=== PATIENT | male | born 1995 | race Caucasian/White ===

== ENCOUNTER 2019-11-03 06:00 | Emergency (ER) | payer MEDICAID | END 2019-11-03 06:10 | disposition left against medical advice (07) | LOC: ER 06:01 | DX: T50.905A Adverse effect of unspecified drugs, medicaments and biological substances, initial encounter (principal); Z53.21 Procedure and treatment not carried out due to patient leaving prior to being seen by health care provider; Y92.89 Other specified places as the place of occurrence of the external cause ==

== ENCOUNTER 2021-05-08 21:53 | Inpatient (IN) | payer MEDICAID, OTHER ==
[~2021-05-08] VITALS: Ht 172.7 cm; Wt 59.1 kg
[2021-05-08 22:35] LABS: BASOPHILS % (AUTO) 0.1 % (0-1); EOSINOPHILS # (AUTO) 0.1 X10'3 (0-0.9); EOSINOPHILS % (AUTO) 1.3 % (0-6); HEMOGLOBIN 13.7 g/dl (14.0-17.9); LYMPHOCYTES # (AUTO) 1.2 X10'3 (1.1-4.8); LYMPHOCYTES % (AUTO) 18.9 % (21-51); MEAN CORPUSCULAR HEMOGLOBIN 30.4 PG (27.0-31.0); MEAN CORPUSCULAR HGB CONC 33.4 g/dL (33.0-36.5); MEAN CORPUSCULAR VOLUME 91.1 FL (78-98); MEAN PLATELET VOLUME 9.7 FL (7.4-10.4); MONOCYTES # (AUTO) 0.7 X10'3 (0-0.9); MONOCYTES % (AUTO) 11.8 % (2-12); NEUTROPHILS # (AUTO) 4.2 X10'3 (1.8-7.7); NEUTROPHILS % (AUTO) 67.9 % (42-75); PLATELET COUNT 188 X10'3 (140-440); RED BLOOD COUNT 4.49 X10'6 (4.70-6.10); RED CELL DISTRIBUTION WIDTH 12.5 % (11.5-14.5); WHITE BLOOD COUNT 6.1 X10'3 (4.5-11.0)
[2021-05-08 22:47] LABS: LACTIC SEPSIS 2.7 MMOL/L (0.4-2.0)
[2021-05-08 23:08] LABS: ALANINE AMINOTRANSFERASE 21 U/L (12-78); ALBUMIN 4.3 G/DL (3.4-5.0); ALBUMIN/GLOBULIN RATIO 1.4 (1.1-1.5); ALKALINE PHOSPHATASE 122 IU/L (46-116); ANION GAP 12 (8-16); ASPARTATE AMINO TRANSFERASE 16 U/L (10-37); BILIRUBIN,TOTAL 0.8 MG/DL (0.1-1.0); BLOOD UREA NITROGEN 18 MG/DL (7-18); BUN/CREATININE RATIO 15.8 (5.4-32.0); CALCIUM 9.6 MG/DL (8.5-10.1); CHLORIDE 106 MMOL/L (99-107); CREATININE 1.14 MG/DL (0.60-1.10); GLUCOSE 116 MG/DL (70-104); POTASSIUM 3.4 MMOL/L (3.5-5.1); SODIUM 143 MMOL/L (135-145); TOTAL PROTEIN 7.4 G/DL (6.4-8.2); eGFR 76 ML/MIN
[2021-05-08 23:12] LABS: TROPONIN I < 0.04 NG/ML (0.0-0.05)
[2021-05-08 23:13] LABS: ETHANOL < 0.010 GM/DL (0.0-0.010)
[2021-05-08] MEDS ORDERED: normal saline 1000ML IV soln IV ONE (23:25)
[2021-05-08 23:30] LABS: URINE AMPHETAMINE SCREEN NEGATIVE (Neg); URINE BARBITUATE SCREEN NEGATIVE (Neg); URINE BENZODIAZEPINES SCREEN NEGATIVE (Neg); URINE CANNABINOID SCREEN NEGATIVE (Neg); URINE COCAINE SCREEN NEGATIVE (Neg); URINE METHADONE SCREEN NEGATIVE (Neg); URINE OPIATE SCREEN NEGATIVE (Neg); URINE PHENCYCLIDINE SCREEN NEGATIVE (Neg)
[2021-05-08 23:48] LABS: CLARITY,URINE CLEAR (Clear); COLOR,URINE YELLOW (Yellow); PROTEIN,URINE NEGATIVE (Neg); UA COLLECTION TYPE NON-SPECIFIED
[2021-05-08 23:49] LABS: GLUCOSE, URINE NEGATIVE (Neg); KETONES,URINE NEGATIVE (Neg); LEUKOCYTE ESTERASE ,URINE NEGATIVE (Neg); NITRITES, URINE NEGATIVE (Neg); OCCULT BLOOD,URINE NEGATIVE (Neg); UROBILINOGEN,URINE 0.2 E.U/dL (0.2-1.0)
[2021-05-08 23:58] LABS: CREATINE KINASE 94 U/L (39-308)
[2021-05-09] MEDS ORDERED: magnesium hydroxide 30ml (MOM) UD suspension PO PRN (00:10)
[2021-05-09] MEDS ORDERED: ipratropium/albuterol 3ml nebule NEB PRN (00:10)
[2021-05-09] MEDS ORDERED: potassium Cl 20 mEq SR tablet PO PRN ×2 (00:10)
[2021-05-09] MEDS ORDERED: ondansetron/PF 4mg/2ml inj IV PRN (00:10)
[2021-05-09] MEDS ORDERED: potassium Cl 40MEQ/1/2NS 520ml 520 ML IV PRN ×2 (00:10)
[2021-05-09] MEDS ORDERED: magnesium 2GM in 50ml NS 50 ML IV PRN (00:10)
[2021-05-09] MEDS ORDERED: mag hydrox/Alum hydrox/simeth 30ml oral suspension PO PRN (00:10)
[2021-05-09] MEDS ORDERED: acetaminophen 325mg tablet PO PRN ×2 (00:10)
[2021-05-09] MEDS ORDERED: albuterol 2.5 MG/3 ML nebule NEB PRN (00:10)
[2021-05-09] MEDS ORDERED: HYDROcodone/acetaminophen 5mg/325mg tablet PO PRN (00:10)
[2021-05-09] MEDS ORDERED: HYDROcodone/acetaminophen 10/325mg tab PO PRN (00:10)
[2021-05-09] MEDS ORDERED: magnesium 4gm in 100ml NS 100 ML IV PRN (00:10)
[2021-05-09] MEDS: potassium Cl 20mEq in NS 1,000 ML IV SCH ×3 (00:21→16:15)
[2021-05-09] MEDS ORDERED: PERFLUTREN PROTEIN-A MICROSPHR (Optison) 0.22 MG/ML 3ML VIAL IV PRN (00:50)
--- NOTE | 2021-05-09 07:53 | NUR ---
Report given to COMMUTATOR OPERATOR eLigh. Pt room currently needing to be cleaned, RN to call when room ready for pt.
[2021-05-09] MEDS: docusate sod 100mg capsule PO SCH ×2 (07:58→21:20)
[2021-05-09] MEDS: K and/or MAG REPLACEMENT MC SCH ×2 (07:58→20:00)
[2021-05-09 10:00] VITALS: BP 129/85
--- NOTE | 2021-05-09 10:00 | NUR ---
Patient in room PCU 3010. I have received report from YOSHI Dubon and had the opportunity to ask questions and assume patient care.
[2021-05-09 10:34] LABS: BASOPHILS % (AUTO) 0.1 % (0-1); EOSINOPHILS % (AUTO) 0.4 % (0-6); HEMATOCRIT 40.4 % (42.0-52.0); LYMPHOCYTES # (AUTO) 0.9 X10'3 (1.1-4.8); LYMPHOCYTES % (AUTO) 8.2 % (21-51); MEAN CORPUSCULAR HEMOGLOBIN 30.7 PG (27.0-31.0); MEAN CORPUSCULAR HGB CONC 34.5 g/dL (33.0-36.5); MEAN PLATELET VOLUME 9.1 FL (7.4-10.4); MONOCYTES # (AUTO) 1.4 X10'3 (0-0.9); NEUTROPHILS # (AUTO) 8.5 X10'3 (1.8-7.7); NEUTROPHILS % (AUTO) 78.3 % (42-75); PLATELET COUNT 193 X10'3 (140-440); RED BLOOD COUNT 4.54 X10'6 (4.70-6.10); RED CELL DISTRIBUTION WIDTH 12.5 % (11.5-14.5); WHITE BLOOD COUNT 10.9 X10'3 (4.5-11.0)
[2021-05-09 10:42] LABS: ALANINE AMINOTRANSFERASE 22 U/L (12-78); ALBUMIN 3.8 G/DL (3.4-5.0); ALBUMIN/GLOBULIN RATIO 1.2 (1.1-1.5); ALKALINE PHOSPHATASE 123 IU/L (46-116); ANION GAP 11 (8-16); ASPARTATE AMINO TRANSFERASE 17 U/L (10-37); BLOOD UREA NITROGEN 9 MG/DL (7-18); CALCIUM 9.2 MG/DL (8.5-10.1); CHLORIDE 111 MMOL/L (99-107); CREATININE 0.82 MG/DL (0.60-1.10); GLUCOSE 84 MG/DL (70-104); POTASSIUM 4.2 MMOL/L (3.5-5.1); SODIUM 146 MMOL/L (135-145); eGFR > 90 ML/MIN
[2021-05-09 11:00] VITALS: BP 121/82
[2021-05-09] MEDS ORDERED: NO HOME MEDS (11:48)
--- NOTE | 2021-05-09 12:39 | NUR ---
Unable to DART Patient is completely incapacitated and unable to be darted.
[2021-05-09 15:00] VITALS: BP 120/81
[2021-05-09] MEDS: dextrose 5%-water 1,000 ML IV SCH (17:40)
[2021-05-09 18:00] VITALS: BP 121/84
--- NOTE | 2021-05-09 18:20 | NUR ---
Patient in room PCU 3010. I have received report from Yolis BELLE and had the opportunity to ask questions and assume patient care.
--- NOTE | 2021-05-09 22:18 | NUR ---
Patient drank 100% of fluids on tray Addendum: 05/09/21 at 2218 by Neyda Manuel RN Amended: Links added.
[2021-05-09 23:00] VITALS: BP 120/86
--- NOTE | 2021-05-10 01:54 | NUR ---
Anisa from lab called to report a positive blood culture in aerobic bottle of Gram positive cocci in clusters. Called MD. Advised that patient is starting augmentin in the AM. gave order to start ABX now.
[2021-05-10] MEDS ORDERED: amox tr/potassium clavulanate 875/125mg TAB PO ONE (02:05)
[2021-05-10 02:25] VITALS: BP 123/93
[2021-05-10] MEDS: dextrose 5%-water 1,000 ML IV SCH ×2 (04:26→13:40)
--- NOTE | 2021-05-10 05:05 | NUR ---
Called MD with regard to run of ST in 140's. New orders for EkG and cardizem 5mg IV and repaeat in 30 mins if HR over 110. orders entered into matrix.
[2021-05-10] MEDS ORDERED: diltiazem 5mg/ml 5ml inj. IV ONE ×2 (05:10→08:50)
--- NOTE | 2021-05-10 05:29 | NUR ---
EKG completed. Cardizem given to discharge rn to push.
--- NOTE | 2021-05-10 05:30 | NUR ---
HR now 102, therefore cardizem not administered.
[2021-05-10 06:00] VITALS: BP 121/84
--- NOTE | 2021-05-10 06:15 | NUR ---
Patient in room PCU 3010. I have received report from YOSHI Faye and had the opportunity to ask questions and assume patient care.
--- NOTE | 2021-05-10 06:32 | NUR ---
Problems reprioritized. Patient report given, questions answered & plan of care reviewed with Yolis BELLE.
[2021-05-10 07:11] LABS: BASOPHILS % (AUTO) 0.1 % (0-1); LYMPHOCYTES # (AUTO) 1.3 X10'3 (1.1-4.8); MEAN CORPUSCULAR HGB CONC 33.9 g/dL (33.0-36.5); NEUTROPHILS # (AUTO) 5.3 X10'3 (1.8-7.7); WHITE BLOOD COUNT 7.6 X10'3 (4.5-11.0)
[2021-05-10 07:14] LABS: EOSINOPHILS # (AUTO) 0.2 X10'3 (0-0.9); EOSINOPHILS % (AUTO) 2.2 % (0-6); HEMATOCRIT 42.2 % (42.0-52.0); HEMOGLOBIN 14.3 g/dl (14.0-17.9); LYMPHOCYTES % (AUTO) 17.2 % (21-51); MEAN CORPUSCULAR HEMOGLOBIN 30.8 PG (27.0-31.0); MEAN CORPUSCULAR VOLUME 90.9 FL (78-98); MEAN PLATELET VOLUME 9.2 FL (7.4-10.4); MONOCYTES # (AUTO) 0.8 X10'3 (0-0.9); MONOCYTES % (AUTO) 11.2 % (2-12); NEUTROPHILS % (AUTO) 69.3 % (42-75); PLATELET COUNT 213 X10'3 (140-440); RED BLOOD COUNT 4.64 X10'6 (4.70-6.10); RED CELL DISTRIBUTION WIDTH 12.7 % (11.5-14.5)
[2021-05-10 07:45] LABS: ALANINE AMINOTRANSFERASE 20 U/L (12-78); ALBUMIN/GLOBULIN RATIO 1.2 (1.1-1.5); ALKALINE PHOSPHATASE 136 IU/L (46-116); ANION GAP 11 (8-16); ASPARTATE AMINO TRANSFERASE 16 U/L (10-37); BLOOD UREA NITROGEN 7 MG/DL (7-18); BUN/CREATININE RATIO 8.3 (5.4-32.0); CALCIUM 9.2 MG/DL (8.5-10.1); CHLORIDE 107 MMOL/L (99-107); CREATININE 0.84 MG/DL (0.60-1.10); GLUCOSE 91 MG/DL (70-104); MAGNESIUM 2.2 MG/DL (1.5-2.4); POTASSIUM 4.3 MMOL/L (3.5-5.1); SODIUM 143 MMOL/L (135-145); TOTAL CARBON DIOXIDE 24.6 MMOL/L (24-32); TOTAL PROTEIN 7.3 G/DL (6.4-8.2); eGFR > 90 ML/MIN
[2021-05-10] MEDS: K and/or MAG REPLACEMENT MC SCH ×2 (08:00→19:41)
[2021-05-10] MEDS: amox tr/potassium clavulanate 875/125mg TAB PO SCH ×2 (08:48→17:33)
[2021-05-10] MEDS: docusate sod 100mg capsule PO SCH ×2 (08:48→19:37)
--- NOTE | 2021-05-10 08:54 | NUR ---
Paged Dr. Reyes PAGER ID: [phone] MESSAGE: 3010 White, Anton HR in the 160s with bigeminy, trigeminy, PVCs; one time 5mg Cardizem available. Leigh BELLE [phone]
[2021-05-10 11:00] VITALS: BP 122/83
[2021-05-10 15:00] VITALS: BP 134/88
--- NOTE | 2021-05-10 18:34 | NUR ---
[place] Medication Administration: For this medication-pass time frame, all medication were reviewed, dispensed, administered and documented per hospital policy by YOSHI Fatima.
--- NOTE | 2021-05-10 18:35 | NUR ---
[place] documentation: I have reviewed and agree with all interventions, assessments performed and documented by YOSHI Fatima.
--- NOTE | 2021-05-10 18:40 | NUR ---
Patient in room PCU 3010. I have received report from LEXIE BELLE and had the opportunity to ask questions and assume patient care.
[2021-05-10 19:00] VITALS: BP 125/101
[2021-05-10 22:00] VITALS: BP 115/82
[2021-05-10] MEDS ORDERED: propranolol 10mg tablet PO ONE (23:30)
[2021-05-11] VITALS (7 sets, daily range): BP systolic 101–115; BP diastolic 57–80
[2021-05-11] MEDS: dextrose 5%-water 1,000 ML IV SCH ×3 (00:22→19:40)
--- NOTE | 2021-05-11 02:25 | NUR ---
PAGED DR. LINARES AND WAS INFORMED OF ANOTHER POSITIVE BLOOD CULTURE GRAM +COCCI IN CLUSTERS SEEN IN AEROBIC BOTTLE DRAWN 05/09 235. CALLED BACK AND SAID WILL WRITE NEW ORDERS FOR ANTIBIOTICS.
[2021-05-11] MEDS: CefTRIAXone/D5W-Rocephin 1gm 50 ML IV SCH (04:02)
--- NOTE | 2021-05-11 06:30 | NUR ---
Problems reprioritized. Patient report given, questions answered & plan of care reviewed with GAGE BELLE.
[2021-05-11 07:28] LABS: BASOPHILS % (AUTO) 0.4 % (0-1); EOSINOPHILS # (AUTO) 0.2 X10'3 (0-0.9); HEMATOCRIT 38.7 % (42.0-52.0); HEMOGLOBIN 13.3 g/dl (14.0-17.9); LYMPHOCYTES # (AUTO) 2.1 X10'3 (1.1-4.8); LYMPHOCYTES % (AUTO) 33.7 % (21-51); MEAN CORPUSCULAR HEMOGLOBIN 30.7 PG (27.0-31.0); MEAN CORPUSCULAR HGB CONC 34.3 g/dL (33.0-36.5); MEAN CORPUSCULAR VOLUME 89.4 FL (78-98); MEAN PLATELET VOLUME 9.1 FL (7.4-10.4); MONOCYTES # (AUTO) 0.8 X10'3 (0-0.9); MONOCYTES % (AUTO) 13.3 % (2-12); NEUTROPHILS % (AUTO) 49.6 % (42-75); PLATELET COUNT 235 X10'3 (140-440); RED BLOOD COUNT 4.33 X10'6 (4.70-6.10); RED CELL DISTRIBUTION WIDTH 12.6 % (11.5-14.5); WHITE BLOOD COUNT 6.1 X10'3 (4.5-11.0)
[2021-05-11 07:53] LABS: ALANINE AMINOTRANSFERASE 19 U/L (12-78); ALBUMIN 3.5 G/DL (3.4-5.0); ALBUMIN/GLOBULIN RATIO 1.1 (1.1-1.5); ALKALINE PHOSPHATASE 124 IU/L (46-116); ANION GAP 8 (8-16); ASPARTATE AMINO TRANSFERASE 17 U/L (10-37); BLOOD UREA NITROGEN 8 MG/DL (7-18); BUN/CREATININE RATIO 9.1 (5.4-32.0); CALCIUM 9.2 MG/DL (8.5-10.1); CHLORIDE 104 MMOL/L (99-107); CREATININE 0.88 MG/DL (0.60-1.10); GLUCOSE 100 MG/DL (70-104); MAGNESIUM 2.2 MG/DL (1.5-2.4); POTASSIUM 3.7 MMOL/L (3.5-5.1); SODIUM 137 MMOL/L (135-145); TOTAL CARBON DIOXIDE 25.2 MMOL/L (24-32); TOTAL PROTEIN 6.6 G/DL (6.4-8.2); eGFR > 90 ML/MIN
[2021-05-11] MEDS: K and/or MAG REPLACEMENT MC SCH ×2 (08:00→19:59)
[2021-05-11] MEDS: vancomycin/NS 1 GM ADD-VANTAGE 250 ML IV SCH ×2 (10:16→17:54)
[2021-05-11] MEDS: docusate sod 100mg capsule PO SCH ×2 (10:17→21:16)
[2021-05-11] MEDS: propranolol 10mg tablet PO SCH ×2 (10:19→21:16)
--- NOTE | 2021-05-11 15:07 | NUR ---
PAGER ID: [phone] MESSAGE: LORE Day 3010 PT. SHOULD BE ON SEIZURE MEDS IF HERE FOR SEIZURE? MED REQ. NOT CORRECT. PT. TAKES MANY MEDS PER SACHA BELLE. THEY ARE FAXING EMAR. PLEASE REVIEW MED WHEN COMPLETE. Valeriy [phone]
[2021-05-11] MEDS ORDERED: HALO10TA13 PO (15:47)
[2021-05-11] MEDS ORDERED: CLOZ200T PO (15:47)
[2021-05-11] MEDS ORDERED: LITH300C PO (15:51)
[2021-05-11] MEDS ORDERED: SERT25TA PO (15:51)
[2021-05-11] MEDS ORDERED: MAGN200T5 PO (15:51)
[2021-05-11] MEDS ORDERED: MIRT-92 PO (15:51)
--- NOTE | 2021-05-11 15:54 | NUR ---
CALLED [facility] [phone] FOR HOME MEDS. MEDS FAXED OVER AND MED REQ IMPUTED. FAX PAPERS PLACED IN CHART.
--- NOTE | 2021-05-11 16:21 | NUR ---
PAGER ID: [phone] MESSAGE: Faith Day 8276A MED REQ DONE. PLEASE REVIEW WHEN YOU CAN. FOUND WHAT LOOKS LIKE INFECTED SCAB/ABRASION ON CHEST. WANT TOPICAL ANTIBACTERIAL CREAM? GAGE [phone]
--- NOTE | 2021-05-11 16:56 | NUR ---
PAGER ID: [phone] MESSAGE: Faith Day 3010A PT WILLING TO GET EEG IF IT IS REORDERED AT THIS TIME. DO YOU WANT? GAGE [phone]
--- NOTE | 2021-05-11 18:25 | NUR ---
DARLENE CALLED. DOES NOT WANT TO DO AN EEG AT THIS TIME.
--- NOTE | 2021-05-11 18:40 | NUR ---
GAVE REPORT TO MORENO BELLE
--- NOTE | 2021-05-11 18:48 | NUR ---
Patient in room PCU 3010. I have received report from Amaris BELLE and had the opportunity to ask questions and assume patient care.
--- NOTE | 2021-05-11 20:00 | NUR ---
New PiV 20 gauge to LAC as patient pulled out the PIV to RUE.
[2021-05-11] MEDS: clozapine 100mg tablet PO SCH (21:13)
[2021-05-11] MEDS: sertraline 50mg tablet PO SCH (21:14)
[2021-05-11] MEDS: mirtazapine 15mg tablet PO SCH (21:14)
[2021-05-11] MEDS: lithium carbonate 150mg capsule PO SCH (21:14)
[2021-05-11] MEDS: haloperidol 5mg tablet PO SCH (21:16)
[2021-05-11] MEDS: neomy sulf/bacitrac zn/polymixin b oint 14.2 gm tube TP SCH (21:19)
[2021-05-11] MEDS ORDERED: bisacodyl 10mg suppository rectal RC ONE (22:00)
[2021-05-12] VITALS (7 sets, daily range): BP systolic 100–128; BP diastolic 62–76
[2021-05-12] MEDS: CefTRIAXone/D5W-Rocephin 1gm 50 ML IV SCH (01:22)
[2021-05-12] MEDS: vancomycin/NS 1 GM ADD-VANTAGE 250 ML IV SCH (02:21)
--- NOTE | 2021-05-12 06:50 | NUR ---
Problems reprioritized. Patient report given, questions answered & plan of care reviewed with Leona BELLE.
--- NOTE | 2021-05-12 07:13 | NUR ---
Patient in room PCU 3010. I have received report from Neyda BELLE and had the opportunity to ask questions and assume patient care went in room to check on patient and he was just coming out of the bathroom where he had pooped all over the bathroom smeared on the marion , toilet shower curtain marion, and all over himself guard present in room patient in leg shackles and one wrist shackles. Patient cleaned up PIV wrapped and patient was assisted in the shower, House keeping called and room and bed being cleaned.
[2021-05-12] MEDS: docusate sod 100mg capsule PO SCH ×2 (08:00→18:35)
[2021-05-12] MEDS: K and/or MAG REPLACEMENT MC SCH ×2 (08:00→20:00)
[2021-05-12] MEDS: propranolol 10mg tablet PO SCH ×2 (08:36→20:46)
[2021-05-12] MEDS: haloperidol 5mg tablet PO SCH ×3 (08:36→20:46)
[2021-05-12] MEDS: magnesium oxide 400mg tablet PO SCH (08:36)
[2021-05-12] MEDS: lithium carbonate 150mg capsule PO SCH ×2 (08:37→20:47)
[2021-05-12] MEDS: neomy sulf/bacitrac zn/polymixin b oint 14.2 gm tube TP SCH ×3 (08:37→21:00)
[2021-05-12] MEDS: heparin, porcine 5000 units/ml vial SQ SCH ×2 (08:37→20:47)
[2021-05-12] MEDS: dextrose 5%-water 1,000 ML IV SCH ×4 (08:46→23:50)
[2021-05-12] MEDS ORDERED: VANCOMYCIN LEVEL IV ONE (09:30)
[2021-05-12 10:26] LABS: BASOPHILS % (AUTO) 0.3 % (0-1); EOSINOPHILS # (AUTO) 0.2 X10'3 (0-0.9); EOSINOPHILS % (AUTO) 3.9 % (0-6); LYMPHOCYTES # (AUTO) 1.9 X10'3 (1.1-4.8); LYMPHOCYTES % (AUTO) 33.4 % (21-51); MEAN CORPUSCULAR HEMOGLOBIN 30.4 PG (27.0-31.0); MEAN CORPUSCULAR HGB CONC 33.3 g/dL (33.0-36.5); MEAN CORPUSCULAR VOLUME 91.2 FL (78-98); MEAN PLATELET VOLUME 9.5 FL (7.4-10.4); MONOCYTES # (AUTO) 0.7 X10'3 (0-0.9); MONOCYTES % (AUTO) 12.9 % (2-12); NEUTROPHILS # (AUTO) 2.7 X10'3 (1.8-7.7); NEUTROPHILS % (AUTO) 49.5 % (42-75); PLATELET COUNT 224 X10'3 (140-440); RED BLOOD COUNT 4.28 X10'6 (4.70-6.10); RED CELL DISTRIBUTION WIDTH 12.7 % (11.5-14.5); WHITE BLOOD COUNT 5.5 X10'3 (4.5-11.0)
[2021-05-12 10:41] LABS: ALANINE AMINOTRANSFERASE 20 U/L (12-78); ALBUMIN 3.2 G/DL (3.4-5.0); ALBUMIN/GLOBULIN RATIO 0.9 (1.1-1.5); ALKALINE PHOSPHATASE 115 IU/L (46-116); ANION GAP 7 (8-16); ASPARTATE AMINO TRANSFERASE 17 U/L (10-37); BILIRUBIN,TOTAL 0.6 MG/DL (0.1-1.0); BLOOD UREA NITROGEN 14 MG/DL (7-18); BUN/CREATININE RATIO 14.3 (5.4-32.0); CALCIUM 8.7 MG/DL (8.5-10.1); CHLORIDE 109 MMOL/L (99-107); CREATININE 0.98 MG/DL (0.60-1.10); GLUCOSE 104 MG/DL (70-104); MAGNESIUM 2.4 MG/DL (1.5-2.4); SODIUM 144 MMOL/L (135-145); TOTAL CARBON DIOXIDE 28.1 MMOL/L (24-32); TOTAL PROTEIN 6.7 G/DL (6.4-8.2); eGFR > 90 ML/MIN
[2021-05-12 10:45] LABS: VANCOMYCIN,TROUGH 20.7 UG/ML (6.0-14.0)
--- NOTE | 2021-05-12 10:56 | NUR ---
PAGER ID: [phone] MESSAGE: Hunter [phone] Re: White 3010 Critical [place] Trough 20.7 pharmacy to dose already
--- NOTE | 2021-05-12 12:13 | NUR ---
Betsy Pharmacist aware of patient Vanco Trough 20.7 and is making adjustments.
[2021-05-12] MEDS: VANCOmycin 1250MG/NS 250ml Bag 250 ML IV SCH (16:20)
--- NOTE | 2021-05-12 18:19 | NUR ---
Patient in room PCU 3010. I have received report from YOSHI Delgadillo and had the opportunity to ask questions and assume patient care.
--- NOTE | 2021-05-12 18:37 | NUR ---
Problems reprioritized. Patient report given, questions answered & plan of care reviewed with Maryana Moore RN.
[2021-05-12] MEDS: sertraline 50mg tablet PO SCH (20:46)
[2021-05-12] MEDS: clozapine 100mg tablet PO SCH (20:47)
[2021-05-12] MEDS: mirtazapine 15mg tablet PO SCH (22:13)
[2021-05-13] MEDS: CefTRIAXone/D5W-Rocephin 1gm 50 ML IV SCH (01:10)
[2021-05-13 02:00] VITALS: BP 118/68
[2021-05-13] MEDS: VANCOmycin 1250MG/NS 250ml Bag 250 ML IV SCH (02:00)
[2021-05-13 06:00] VITALS: BP 116/84
--- NOTE | 2021-05-13 06:53 | NUR ---
Problems reprioritized. Patient report given, questions answered & plan of care reviewed with YOSHI Kohler.
[2021-05-13 07:15] LABS: BASOPHILS % (AUTO) 0.3 % (0-1); EOSINOPHILS # (AUTO) 0.1 X10'3 (0-0.9); EOSINOPHILS % (AUTO) 1.8 % (0-6); HEMATOCRIT 40.7 % (42.0-52.0); HEMOGLOBIN 13.6 g/dl (14.0-17.9); LYMPHOCYTES # (AUTO) 1.6 X10'3 (1.1-4.8); LYMPHOCYTES % (AUTO) 23.8 % (21-51); MEAN CORPUSCULAR HEMOGLOBIN 30.3 PG (27.0-31.0); MEAN CORPUSCULAR HGB CONC 33.6 g/dL (33.0-36.5); MEAN CORPUSCULAR VOLUME 90.2 FL (78-98); MEAN PLATELET VOLUME 9.6 FL (7.4-10.4); MONOCYTES # (AUTO) 0.6 X10'3 (0-0.9); MONOCYTES % (AUTO) 8.1 % (2-12); NEUTROPHILS # (AUTO) 4.5 X10'3 (1.8-7.7); PLATELET COUNT 252 X10'3 (140-440); RED BLOOD COUNT 4.51 X10'6 (4.70-6.10); RED CELL DISTRIBUTION WIDTH 12.6 % (11.5-14.5); WHITE BLOOD COUNT 6.8 X10'3 (4.5-11.0)
[2021-05-13 07:52] LABS: ALANINE AMINOTRANSFERASE 21 U/L (12-78); ALBUMIN 3.6 G/DL (3.4-5.0); ALBUMIN/GLOBULIN RATIO 1.1 (1.1-1.5); ALKALINE PHOSPHATASE 144 IU/L (46-116); ANION GAP 10 (8-16); ASPARTATE AMINO TRANSFERASE 15 U/L (10-37); BILIRUBIN,TOTAL 1.1 MG/DL (0.1-1.0); BLOOD UREA NITROGEN 7 MG/DL (7-18); CALCIUM 9.2 MG/DL (8.5-10.1); CHLORIDE 109 MMOL/L (99-107); CREATININE 0.78 MG/DL (0.60-1.10); GLUCOSE 116 MG/DL (70-104); MAGNESIUM 2.5 MG/DL (1.5-2.4); POTASSIUM 3.8 MMOL/L (3.5-5.1); SODIUM 143 MMOL/L (135-145); eGFR > 90 ML/MIN
[2021-05-13] MEDS: K and/or MAG REPLACEMENT MC SCH (08:00)
[2021-05-13] MEDS: docusate sod 100mg capsule PO SCH (08:21)
[2021-05-13] MEDS: propranolol 10mg tablet PO SCH (08:22)
[2021-05-13] MEDS: magnesium oxide 400mg tablet PO SCH (08:22)
[2021-05-13] MEDS: haloperidol 5mg tablet PO SCH (08:22)
[2021-05-13] MEDS: lithium carbonate 150mg capsule PO SCH (08:23)
[2021-05-13] MEDS: heparin, porcine 5000 units/ml vial SQ SCH (08:24)
[2021-05-13] MEDS: neomy sulf/bacitrac zn/polymixin b oint 14.2 gm tube TP SCH (08:24)
[2021-05-13] MEDS ORDERED: PROP10TA10 PO (10:00)
[2021-05-13] MEDS ORDERED: ALBU8.5H17 INH (10:00)
[2021-05-13] MEDS ORDERED: AMOX-580 PO (10:00)
[2021-05-13] MEDS ORDERED: NEOM28.37 TP (10:00)
[2021-05-13 11:00] VITALS: BP 109/65
--- NOTE | 2021-05-13 12:30 | NUR ---
Patient stable for discharge. PIV removed with catheter intact. Telemetry removed. Discharge instructions given to guard to give to medical staff at hospital. Medical staff at [facility] was called to confirm they would be able to fill prescription via their pharmacy. Care Home guards x2 transported patient off unit.
[2021-05-14] MEDS ORDERED: VANCOMYCIN LEVEL IV ONE (01:30)
== END 2021-05-13 12:45 | DRG 871 ==
LOC: ER 21:54 → EEVIPCON 21:54 → ED HOLD 05-09 00:15 → EDBEDREQ 05-09 00:28 → PCU 3S 05-09 10:19
PROVIDERS: ADMIT Family Medicine; ATTEND Family Medicine
DX: A41.9 Sepsis, unspecified organism (principal); G93.41 Metabolic encephalopathy; S02.40DA Maxillary fracture, left side, initial encounter for closed fracture; E87.0 Hyperosmolality and hypernatremia; R00.8 Other abnormalities of heart beat; I49.9 Cardiac arrhythmia, unspecified; Z20.822 Contact with and (suspected) exposure to COVID-19; X58.XXXA Exposure to other specified factors, initial encounter; E87.6 Hypokalemia; F29 Unspecified psychosis not due to a substance or known physiological condition; F17.200 Nicotine dependence, unspecified, uncomplicated; Z78.1 Physical restraint status; Z59.0 Homelessness; Z56.0 Unemployment, unspecified; Y93.89 Activity, other specified; Y92.89 Other specified places as the place of occurrence of the external cause; Y99.8 Other external cause status
CPT/HCPCS: 36415; 70450; 71045; 80053; 80202; 80305; 80320; 81003; 82140; 82550; 82553; 82948; 83605; 83735; 84443; 84484; 85025; 87040; 87077; 87081; 87186; 87635; 93005; 93306; 94760; 97116; 97161; 97530; 99285; C9803; G0378; J0696; J1644; J3370; J3480; J7030; J7070

== ENCOUNTER 2021-05-29 02:27 | Inpatient (IN) | payer MEDICAID ==
[~2021-05-29] VITALS: Ht 172.7 cm; Wt 65.8 kg
[~2021-05-29 02:27] MED LIST: ALBU8.5H17 INH; AMOX-580 PO; CLOZ200T PO; HALO10TA13 PO; LITH300C PO; MAGN200T5 PO; MIRT-92 PO; NEOM28.37 TP; PROP10TA10 PO; SERT25TA PO
[2021-05-29] MEDS ORDERED: propranolol 10mg tablet PO ONE (03:00)
[2021-05-29 03:09] LABS: BASOPHILS % (AUTO) 0.3 % (0-1); EOSINOPHILS # (AUTO) 0.3 X10'3 (0-0.9); EOSINOPHILS % (AUTO) 3.3 % (0-6); HEMATOCRIT 40.5 % (42.0-52.0); LYMPHOCYTES # (AUTO) 2.3 X10'3 (1.1-4.8); LYMPHOCYTES % (AUTO) 30.6 % (21-51); MEAN CORPUSCULAR HEMOGLOBIN 30.3 PG (27.0-31.0); MEAN CORPUSCULAR HGB CONC 34.6 g/dL (33.0-36.5); MEAN CORPUSCULAR VOLUME 87.8 FL (78-98); MEAN PLATELET VOLUME 9.5 FL (7.4-10.4); MONOCYTES # (AUTO) 0.6 X10'3 (0-0.9); MONOCYTES % (AUTO) 8.5 % (2-12); NEUTROPHILS # (AUTO) 4.4 X10'3 (1.8-7.7); NEUTROPHILS % (AUTO) 57.3 % (42-75); PLATELET COUNT 204 X10'3 (140-440); RED BLOOD COUNT 4.62 X10'6 (4.70-6.10); RED CELL DISTRIBUTION WIDTH 12.8 % (11.5-14.5); WHITE BLOOD COUNT 7.6 X10'3 (4.5-11.0)
[2021-05-29 03:24] LABS: ALANINE AMINOTRANSFERASE 31 U/L (12-78); ALBUMIN 4.2 G/DL (3.4-5.0); ALBUMIN/GLOBULIN RATIO 1.3 (1.1-1.5); ALKALINE PHOSPHATASE 139 IU/L (46-116); ANION GAP 10 (8-16); ASPARTATE AMINO TRANSFERASE 18 U/L (10-37); BLOOD UREA NITROGEN 16 MG/DL (7-18); BUN/CREATININE RATIO 13.4 (5.4-32.0); CALCIUM 9.4 MG/DL (8.5-10.1); CHLORIDE 107 MMOL/L (99-107); CREATININE 1.19 MG/DL (0.60-1.10); GLUCOSE 110 MG/DL (70-104); SODIUM 143 MMOL/L (135-145); TOTAL CARBON DIOXIDE 25.7 MMOL/L (24-32); TOTAL PROTEIN 7.5 G/DL (6.4-8.2); eGFR 73 ML/MIN
[2021-05-29 03:26] LABS: URINE AMPHETAMINE SCREEN NEGATIVE (Neg); URINE BARBITUATE SCREEN NEGATIVE (Neg); URINE BENZODIAZEPINES SCREEN NEGATIVE (Neg); URINE CANNABINOID SCREEN NEGATIVE (Neg); URINE COCAINE SCREEN NEGATIVE (Neg); URINE METHADONE SCREEN NEGATIVE (Neg); URINE OPIATE SCREEN NEGATIVE (Neg); URINE PHENCYCLIDINE SCREEN NEGATIVE (Neg)
[2021-05-29 03:30] LABS: ETHANOL < 0.010 GM/DL (0.0-0.010)
[2021-05-29 04:15] VITALS: BP 133/92
[2021-05-29] MEDS ORDERED: acetaminophen 325mg tablet PO PRN ×2 (04:15)
[2021-05-29] MEDS ORDERED: magnesium hydroxide 30ml (MOM) UD suspension PO PRN (04:15)
[2021-05-29] MEDS ORDERED: loperamide 2mg capsule PO PRN (04:15)
[2021-05-29] MEDS ORDERED: mag hydrox/Alum hydrox/simeth 30ml oral suspension PO PRN (04:15)
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
[2021-05-29] MEDS ORDERED: LITH300C PO (05:37)
[2021-05-29 07:46] VITALS: BP 131/80
[2021-05-29] MEDS: lithium carbonate 150mg capsule PO SCH ×2 (07:59→20:14)
[2021-05-29] MEDS: magnesium oxide 400mg tablet PO SCH (07:59)
[2021-05-29] MEDS: haloperidol 5mg tablet PO SCH ×3 (07:59→20:15)
[2021-05-29] MEDS ORDERED: FLU VACC QS2021-22(6MOS UP)/PF 60 MCG/0.5 ML SYRINGE IM ONE (10:00)
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
[2021-05-29] MEDS ORDERED: hydrOXYzine 25 MG tablet PO PRN (18:35)
[2021-05-29] MEDS ORDERED: clozapine 25mg tablet PO PRN (18:35)
[2021-05-29 19:23] VITALS: BP 128/81
[2021-05-29] MEDS: clozapine 100mg tablet PO SCH (20:14)
[2021-05-29] MEDS: mirtazapine 15mg tablet PO SCH (20:15)
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
[2021-05-30 07:53] VITALS: BP 116/73
[2021-05-30] MEDS: haloperidol 5mg tablet PO SCH ×2 (08:23→20:34)
[2021-05-30] MEDS: lithium carbonate 150mg capsule PO SCH ×2 (08:23→20:31)
[2021-05-30] MEDS: magnesium oxide 400mg tablet PO SCH (08:23)
[2021-05-30] MEDS: sertraline 50mg tablet PO SCH (08:24)
[2021-05-30 09:30] LABS: HEMOGLOBIN A1C 5.4 % (4.5-6.2)
[2021-05-30 09:45] LABS: CHOL/HDL RATIO 1.7 (0.00-4.99); CHOLESTEROL 119 MG/DL (0-200); HDL CHOLESTEROL 70 MG/DL (35-60); LDL CHOLESTEROL 45 MG/DL (50-100); TRIGLYCERIDES 67 MG/DL (20-135)
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
[2021-05-30 20:13] VITALS: BP 119/76
[2021-05-30] MEDS: clozapine 100mg tablet PO SCH (20:30)
[2021-05-30] MEDS: mirtazapine 15mg tablet PO SCH (20:31)
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
[2021-05-31 07:52] VITALS: BP 111/77
[2021-05-31] MEDS: sertraline 50mg tablet PO SCH (07:56)
[2021-05-31] MEDS: haloperidol 5mg tablet PO SCH ×2 (07:56→21:00)
[2021-05-31] MEDS: magnesium oxide 400mg tablet PO SCH (07:57)
[2021-05-31] MEDS: lithium carbonate 150mg capsule PO SCH ×2 (07:57→20:00)
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
[2021-05-31 20:48] VITALS: BP 122/81
[2021-05-31] MEDS: clozapine 100mg tablet PO SCH (21:00)
[2021-05-31] MEDS: mirtazapine 15mg tablet PO SCH (21:00)
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
[2021-06-01 08:00] VITALS: BP 111/71
[2021-06-01] MEDS: sertraline 50mg tablet PO SCH (08:07)
[2021-06-01] MEDS: lithium carbonate 150mg capsule PO SCH ×2 (08:07→20:30)
[2021-06-01] MEDS: haloperidol 5mg tablet PO SCH ×2 (08:07→20:31)
[2021-06-01] MEDS: magnesium oxide 400mg tablet PO SCH (08:07)
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
[2021-06-01 19:00] VITALS: BP 122/74
[2021-06-01] MEDS: mirtazapine 15mg tablet PO SCH (20:30)
[2021-06-01] MEDS: clozapine 100mg tablet PO SCH (20:30)
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
[2021-06-02 08:00] VITALS: BP 102/68
[2021-06-02] MEDS: sertraline 50mg tablet PO SCH (08:10)
[2021-06-02] MEDS: magnesium oxide 400mg tablet PO SCH (08:10)
[2021-06-02] MEDS: lithium carbonate 150mg capsule PO SCH ×2 (08:11→20:25)
[2021-06-02] MEDS: haloperidol 5mg tablet PO SCH ×2 (08:11→20:26)
--- NOTE | 2021-06-02 09:35 | NUR ---
Initial: Pt admit for grave disability. Currently on a regular diet and eating well, documented with mostly 100% meeting estimated nutrient needs. LBM 06/02. No documented edema or wounds. No nutrition diagnosis at this time. Will continue to follow. Recommendations: 1) Continue regular diet 2) Bowel care PRN 3) Weekly scaled weights Addendum: 06/02/21 at [address] Amended: Links added.
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
[2021-06-02 19:24] VITALS: BP 105/67
[2021-06-02] MEDS: mirtazapine 15mg tablet PO SCH (20:26)
[2021-06-02] MEDS: clozapine 100mg tablet PO SCH (20:27)
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
[2021-06-03] MEDS: sertraline 50mg tablet PO SCH (07:30)
[2021-06-03] MEDS: magnesium oxide 400mg tablet PO SCH (07:30)
[2021-06-03] MEDS: lithium carbonate 150mg capsule PO SCH ×2 (07:30→20:52)
[2021-06-03] MEDS: haloperidol 5mg tablet PO SCH ×2 (07:30→20:53)
[2021-06-03 08:00] VITALS: BP 116/84
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
[2021-06-03 19:23] VITALS: BP 113/74
[2021-06-03] MEDS: clozapine 100mg tablet PO SCH (20:52)
[2021-06-03] MEDS: mirtazapine 15mg tablet PO SCH (20:53)
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
[2021-06-04] MEDS: sertraline 50mg tablet PO SCH (07:48)
[2021-06-04] MEDS: haloperidol 5mg tablet PO SCH ×2 (07:48→20:43)
[2021-06-04] MEDS: magnesium oxide 400mg tablet PO SCH (07:48)
[2021-06-04] MEDS: lithium carbonate 150mg capsule PO SCH ×2 (07:48→20:43)
[2021-06-04 08:00] VITALS: BP 106/67
--- NOTE | 2021-06-04 14:38 | NUR ---
PLACEMENT Sent placement packet to [place] office. IRA Sousa
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
[2021-06-04 19:22] VITALS: BP 122/84
[2021-06-04] MEDS: clozapine 100mg tablet PO SCH (20:42)
[2021-06-04] MEDS: mirtazapine 15mg tablet PO SCH (20:44)
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
[2021-06-05 08:00] VITALS: BP 119/65
[2021-06-05] MEDS: lithium carbonate 150mg capsule PO SCH ×2 (08:15→20:30)
[2021-06-05] MEDS: sertraline 50mg tablet PO SCH (08:15)
[2021-06-05] MEDS: magnesium oxide 400mg tablet PO SCH (08:16)
[2021-06-05] MEDS: haloperidol 5mg tablet PO SCH ×2 (08:16→20:30)
[2021-06-05 09:48] LABS: BASOPHILS % (AUTO) 0.5 % (0-1); EOSINOPHILS # (AUTO) 0.3 X10'3 (0-0.9); EOSINOPHILS % (AUTO) 5.1 % (0-6); HEMOGLOBIN 12.9 g/dl (14.0-17.9); LYMPHOCYTES # (AUTO) 1.7 X10'3 (1.1-4.8); LYMPHOCYTES % (AUTO) 30.8 % (21-51); MEAN CORPUSCULAR HEMOGLOBIN 29.9 PG (27.0-31.0); MEAN CORPUSCULAR HGB CONC 33.1 g/dL (33.0-36.5); MEAN CORPUSCULAR VOLUME 90.2 FL (78-98); MEAN PLATELET VOLUME 9.3 FL (7.4-10.4); MONOCYTES # (AUTO) 0.6 X10'3 (0-0.9); MONOCYTES % (AUTO) 9.8 % (2-12); NEUTROPHILS % (AUTO) 53.8 % (42-75); PLATELET COUNT 230 X10'3 (140-440); RED BLOOD COUNT 4.33 X10'6 (4.70-6.10); RED CELL DISTRIBUTION WIDTH 13.5 % (11.5-14.5); WHITE BLOOD COUNT 5.6 X10'3 (4.5-11.0)
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
[2021-06-05 19:28] VITALS: BP 121/75
[2021-06-05] MEDS: mirtazapine 15mg tablet PO SCH (20:30)
[2021-06-05] MEDS: clozapine 100mg tablet PO SCH (20:38)
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
[2021-06-06 08:00] VITALS: BP 87/54
[2021-06-06] MEDS: magnesium oxide 400mg tablet PO SCH (08:01)
[2021-06-06] MEDS: sertraline 50mg tablet PO SCH (08:01)
[2021-06-06] MEDS: lithium carbonate 150mg capsule PO SCH ×2 (08:02→20:19)
[2021-06-06] MEDS: haloperidol 5mg tablet PO SCH ×2 (08:02→20:17)
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
[2021-06-06] MEDS: mirtazapine 15mg tablet PO SCH (20:16)
[2021-06-06] MEDS: clozapine 100mg tablet PO SCH (20:17)
[2021-06-06 20:31] VITALS: BP 116/78
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
[2021-06-07] MEDS: magnesium oxide 400mg tablet PO SCH (07:46)
[2021-06-07] MEDS: sertraline 50mg tablet PO SCH (07:46)
[2021-06-07] MEDS: lithium carbonate 150mg capsule PO SCH ×2 (07:47→20:15)
[2021-06-07] MEDS: haloperidol 5mg tablet PO SCH ×2 (07:47→20:14)
[2021-06-07 08:00] VITALS: BP 114/75
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
[2021-06-07 20:00] VITALS: BP 120/80
[2021-06-07] MEDS: mirtazapine 15mg tablet PO SCH (20:14)
[2021-06-07] MEDS: clozapine 100mg tablet PO SCH (20:16)
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
[2021-06-08] MEDS: sertraline 50mg tablet PO SCH (07:46)
[2021-06-08] MEDS: haloperidol 5mg tablet PO SCH ×2 (07:46→20:27)
[2021-06-08] MEDS: magnesium oxide 400mg tablet PO SCH (07:46)
[2021-06-08] MEDS: lithium carbonate 150mg capsule PO SCH ×2 (07:47→20:27)
[2021-06-08 08:00] VITALS: BP 103/70
--- NOTE | 2021-06-08 14:20 | NUR ---
F/u: Request for double portions received by dietary; double eggs WB and double meats BIDLD added to meals. Addendum: 06/08/21 at [address] Amended: Links added.
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
[2021-06-08 20:00] VITALS: BP 115/80
[2021-06-08] MEDS: clozapine 100mg tablet PO SCH (20:26)
[2021-06-08] MEDS: mirtazapine 15mg tablet PO SCH (20:28)
[2021-06-08] MEDS: clozapine 25mg tablet PO SCH (21:00)
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
[2021-06-09 07:24] VITALS: BP 110/74
[2021-06-09] MEDS: magnesium oxide 400mg tablet PO SCH (08:01)
[2021-06-09] MEDS: haloperidol 5mg tablet PO SCH ×2 (08:01→20:37)
[2021-06-09] MEDS: lithium carbonate 150mg capsule PO SCH ×2 (08:01→20:36)
[2021-06-09] MEDS: sertraline 50mg tablet PO SCH (08:01)
--- NOTE | 2021-06-09 11:35 | NUR ---
F/u 06/09: Pt PO 100% regular diet w/ double eggs WB and double meats BIDLD added to meals per request exceeding needs. LBM 06/07. No nutrition intervention at this time. Will continue to monitor. Recommendations: 1) Continue regular diet; double eggs WB/double meats BIDLD per request 2) Bowel care PRN 3) Weekly scaled weights Addendum: 06/09/21 at [address] Amended: Links added.
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
[2021-06-09 19:34] VITALS: BP 112/68
[2021-06-09] MEDS: clozapine 100mg tablet PO SCH (20:36)
[2021-06-09] MEDS: clozapine 25mg tablet PO SCH (20:36)
[2021-06-09] MEDS: mirtazapine 15mg tablet PO SCH (20:37)
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
[2021-06-10 07:52] VITALS: BP 114/79
[2021-06-10] MEDS: sertraline 50mg tablet PO SCH (07:57)
[2021-06-10] MEDS: magnesium oxide 400mg tablet PO SCH (07:57)
[2021-06-10] MEDS: haloperidol 5mg tablet PO SCH ×2 (07:58→20:45)
[2021-06-10] MEDS: lithium carbonate 150mg capsule PO SCH ×2 (07:58→20:48)
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
[2021-06-10 20:00] VITALS: BP 127/87
[2021-06-10] MEDS: clozapine 25mg tablet PO SCH (20:44)
[2021-06-10] MEDS: clozapine 100mg tablet PO SCH (20:44)
[2021-06-10] MEDS: mirtazapine 15mg tablet PO SCH (20:46)
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
[2021-06-11 08:00] VITALS: BP 112/73
[2021-06-11] MEDS: sertraline 50mg tablet PO SCH (08:27)
[2021-06-11] MEDS: magnesium oxide 400mg tablet PO SCH (08:27)
[2021-06-11] MEDS: lithium carbonate 150mg capsule PO SCH ×2 (08:27→19:56)
[2021-06-11] MEDS: haloperidol 5mg tablet PO SCH ×2 (08:28→19:57)
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
[2021-06-11] MEDS: mirtazapine 15mg tablet PO SCH (19:56)
[2021-06-11] MEDS: clozapine 100mg tablet PO SCH (19:57)
[2021-06-11] MEDS: clozapine 25mg tablet PO SCH (19:57)
[2021-06-11 20:00] VITALS: BP 127/84
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
[2021-06-12 08:00] VITALS: BP 111/66
[2021-06-12] MEDS: magnesium oxide 400mg tablet PO SCH (09:02)
[2021-06-12] MEDS: lithium carbonate 150mg capsule PO SCH ×2 (09:02→22:29)
[2021-06-12] MEDS: sertraline 50mg tablet PO SCH (09:03)
[2021-06-12] MEDS: haloperidol 5mg tablet PO SCH ×2 (09:03→22:29)
[2021-06-12 10:42] LABS: BASOPHILS % (AUTO) 0.4 % (0-1); EOSINOPHILS # (AUTO) 0.2 X10'3 (0-0.9); EOSINOPHILS % (AUTO) 3.6 % (0-6); HEMATOCRIT 37.9 % (42.0-52.0); HEMOGLOBIN 12.9 g/dl (14.0-17.9); LYMPHOCYTES # (AUTO) 1.7 X10'3 (1.1-4.8); MEAN CORPUSCULAR HEMOGLOBIN 30.3 PG (27.0-31.0); MEAN CORPUSCULAR VOLUME 89.1 FL (78-98); MEAN PLATELET VOLUME 8.5 FL (7.4-10.4); MONOCYTES # (AUTO) 0.6 X10'3 (0-0.9); MONOCYTES % (AUTO) 10.7 % (2-12); NEUTROPHILS # (AUTO) 3.4 X10'3 (1.8-7.7); NEUTROPHILS % (AUTO) 56.3 % (42-75); PLATELET COUNT 222 X10'3 (140-440); RED BLOOD COUNT 4.26 X10'6 (4.70-6.10); RED CELL DISTRIBUTION WIDTH 14.1 % (11.5-14.5)
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
[2021-06-12 20:04] VITALS: BP 115/83
[2021-06-12] MEDS: mirtazapine 15mg tablet PO SCH (22:29)
[2021-06-12] MEDS: clozapine 100mg tablet PO SCH (22:29)
[2021-06-12] MEDS: clozapine 25mg tablet PO SCH (22:29)
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
[2021-06-13 08:26] VITALS: BP 102/69
[2021-06-13] MEDS: sertraline 50mg tablet PO SCH (09:07)
[2021-06-13] MEDS: haloperidol 5mg tablet PO SCH ×2 (09:07→20:54)
[2021-06-13] MEDS: magnesium oxide 400mg tablet PO SCH (09:07)
[2021-06-13] MEDS: lithium carbonate 150mg capsule PO SCH ×2 (09:08→20:55)
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
[2021-06-13 19:46] VITALS: BP 133/87
[2021-06-13] MEDS: mirtazapine 15mg tablet PO SCH (20:55)
[2021-06-13] MEDS: clozapine 25mg tablet PO SCH (20:55)
[2021-06-13] MEDS: clozapine 100mg tablet PO SCH (21:52)
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
[2021-06-14 07:00] VITALS: BP 111/82
[2021-06-14] MEDS: haloperidol 5mg tablet PO SCH ×2 (08:41→20:49)
[2021-06-14] MEDS: lithium carbonate 150mg capsule PO SCH ×2 (08:42→20:50)
[2021-06-14] MEDS: sertraline 50mg tablet PO SCH (08:42)
[2021-06-14] MEDS: magnesium oxide 400mg tablet PO SCH (08:42)
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
[2021-06-14 19:46] VITALS: BP 130/81
[2021-06-14] MEDS: clozapine 100mg tablet PO SCH (20:51)
[2021-06-14] MEDS: mirtazapine 15mg tablet PO SCH (20:51)
[2021-06-14] MEDS: clozapine 25mg tablet PO SCH (20:51)
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
[2021-06-15 08:28] VITALS: BP 100/62
[2021-06-15] MEDS: lithium carbonate 150mg capsule PO SCH ×2 (08:30→20:34)
[2021-06-15] MEDS: magnesium oxide 400mg tablet PO SCH (08:30)
[2021-06-15] MEDS: haloperidol 5mg tablet PO SCH ×2 (08:31→20:34)
[2021-06-15] MEDS: sertraline 50mg tablet PO SCH (08:31)
--- NOTE | 2021-06-15 08:52 | NUR ---
Contacted [employer] to request clothes for Anton. Provided them with a list of clothing he has requested. They are going to try to purchase clothes for him even though he currently has no income. They are working on applying for SSI for him. IRA Sousa
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
--- NOTE | 2021-06-15 16:13 | NUR ---
Group Art Tx Continued: Patient entered into the group session approximately 30 minutes from the onset. Patient was responsive to the exercises able to complete both a simple drawing and drawing. Patient was comfortable in using the art process and presented as relieved that he was able to communicate with her peers. *Please refer to the [facility] Case Notes for entire overview. Ling Gutierrez MA, GROOVING LATHE TENDER #[id number] [facility], Art Therapist Addendum: 06/15/21 at 1615 by Ling Gutierrez SS Amended: Links added.
--- NOTE | 2021-06-15 16:54 | NUR ---
Group Art Tx Continued: Patient entered into the group session approximately 30 minutes from the onset. Patient was responsive to the exercise and able to complete a simple drawing. He did not want to write/journal. Patient chose to listen and did not choose to share during the group process. Patient remained attentive and listening however, did not interact with his peers. *Please refer to the [facility] Case Notes for entire overview. Ling Gutierrez MA, SALAD COUNTER ATTENDANT #[id number] [facility], Art Therapist Addendum: 06/15/21 at 1655 by Ling Gutierrez SS Amended: Links added.
[2021-06-15] MEDS: clozapine 25mg tablet PO SCH (20:35)
[2021-06-15] MEDS: mirtazapine 15mg tablet PO SCH (20:35)
[2021-06-15] MEDS: clozapine 100mg tablet PO SCH (20:35)
[2021-06-15 20:37] VITALS: BP 125/83
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
[2021-06-16 08:00] VITALS: BP 119/74
[2021-06-16] MEDS: sertraline 50mg tablet PO SCH (08:00)
[2021-06-16] MEDS: haloperidol 5mg tablet PO SCH ×2 (08:00→20:39)
[2021-06-16] MEDS: lithium carbonate 150mg capsule PO SCH ×2 (08:00→20:38)
[2021-06-16] MEDS: magnesium oxide 400mg tablet PO SCH (08:00)
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
[2021-06-16 20:00] VITALS: BP 130/81
[2021-06-16] MEDS: clozapine 25mg tablet PO SCH (20:39)
[2021-06-16] MEDS: clozapine 100mg tablet PO SCH (20:39)
[2021-06-16] MEDS: mirtazapine 15mg tablet PO SCH (20:39)
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
[2021-06-17 08:00] VITALS: BP 110/75
[2021-06-17] MEDS: magnesium oxide 400mg tablet PO SCH (08:07)
[2021-06-17] MEDS: sertraline 50mg tablet PO SCH (08:07)
[2021-06-17] MEDS: lithium carbonate 150mg capsule PO SCH ×2 (08:07→22:26)
[2021-06-17] MEDS: haloperidol 5mg tablet PO SCH ×2 (08:08→22:23)
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
[2021-06-17 19:00] VITALS: BP 135/93
[2021-06-17] MEDS: clozapine 25mg tablet PO SCH (22:22)
[2021-06-17] MEDS: clozapine 100mg tablet PO SCH (22:22)
[2021-06-17] MEDS: mirtazapine 15mg tablet PO SCH (22:24)
--- NOTE | 2021-06-18 05:42 | NUR ---
RN PROGRESS NOTE: LEGAL HOLD: LPS for GD REASON FOR ADMIT: Transferred from [facility]. Client has a history of schizophrenia resulting in [facility] and [facility]. THIS SHIFT: Client was in his room walking around in the dark. Client asked about his discharge plans, and is anxious about his future. Client has a piercing gaze. Mood is anxious and affect is flat. Client discussed his drug use and how he began using drugs at an early age. Client briefly spoke about his dad. Cooperative with meds.
[2021-06-18 08:00] VITALS: BP 113/78
[2021-06-18] MEDS: magnesium oxide 400mg tablet PO SCH (08:01)
[2021-06-18] MEDS: sertraline 50mg tablet PO SCH (08:02)
[2021-06-18] MEDS: haloperidol 5mg tablet PO SCH ×2 (08:02→20:24)
[2021-06-18] MEDS: lithium carbonate 150mg capsule PO SCH ×2 (08:02→20:23)
--- NOTE | 2021-06-18 09:38 | NUR ---
Reassessment: Pt continues eating well, documented with mostly 100% PO intake on regular diet while receiving double eggs WB and double meat BIDLD. [facility] 06/17. No nutrition intervention implemented at this time. Will continue to follow. Recommendations: 1) Continue regular diet; double eggs WB, double meat BIDLD per request 2) Bowel care PRN 3) Weekly scaled weights Addendum: 06/18/21 at [address] Amended: Links added.
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
[2021-06-18 19:28] VITALS: BP 118/76
[2021-06-18] MEDS: mirtazapine 15mg tablet PO SCH (20:24)
[2021-06-18] MEDS: clozapine 100mg tablet PO SCH (20:25)
[2021-06-18] MEDS: clozapine 25mg tablet PO SCH (20:26)
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
[2021-06-19] MEDS: sertraline 50mg tablet PO SCH (08:34)
[2021-06-19] MEDS: lithium carbonate 150mg capsule PO SCH ×2 (08:35→20:05)
[2021-06-19] MEDS: magnesium oxide 400mg tablet PO SCH (08:35)
[2021-06-19] MEDS: haloperidol 5mg tablet PO SCH ×2 (08:35→20:06)
[2021-06-19 09:05] VITALS: BP 113/70
[2021-06-19 10:43] LABS: BASOPHILS # (AUTO) 0.1 X10'3 (0-0.2); BASOPHILS % (AUTO) 1.6 % (0-1); EOSINOPHILS # (AUTO) 0.2 X10'3 (0-0.9); HEMATOCRIT 39.3 % (42.0-52.0); HEMOGLOBIN 13.4 g/dl (14.0-17.9); LYMPHOCYTES # (AUTO) 1.4 X10'3 (1.1-4.8); LYMPHOCYTES % (AUTO) 22.5 % (21-51); MEAN CORPUSCULAR HEMOGLOBIN 30.2 PG (27.0-31.0); MEAN CORPUSCULAR HGB CONC 34.2 g/dL (33.0-36.5); MEAN CORPUSCULAR VOLUME 88.5 FL (78-98); MEAN PLATELET VOLUME 9.3 FL (7.4-10.4); MONOCYTES # (AUTO) 0.7 X10'3 (0-0.9); MONOCYTES % (AUTO) 10.6 % (2-12); NEUTROPHILS # (AUTO) 3.8 X10'3 (1.8-7.7); NEUTROPHILS % (AUTO) 62.3 % (42-75); PLATELET COUNT 221 X10'3 (140-440); RED BLOOD COUNT 4.44 X10'6 (4.70-6.10); RED CELL DISTRIBUTION WIDTH 14.4 % (11.5-14.5); WHITE BLOOD COUNT 6.1 X10'3 (4.5-11.0)
[2021-06-19] MEDS ORDERED: haloperidol 5mg tablet PO ONE (16:25)
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
[2021-06-19 20:00] VITALS: BP 125/84
[2021-06-19] MEDS: clozapine 100mg tablet PO SCH (20:05)
[2021-06-19] MEDS: clozapine 25mg tablet PO SCH (20:05)
[2021-06-19] MEDS: mirtazapine 15mg tablet PO SCH (20:06)
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
[2021-06-20 07:45] VITALS: BP 126/66
[2021-06-20] MEDS: lithium carbonate 150mg capsule PO SCH ×2 (07:56→20:27)
[2021-06-20] MEDS: sertraline 50mg tablet PO SCH (07:56)
[2021-06-20] MEDS: magnesium oxide 400mg tablet PO SCH (07:56)
[2021-06-20] MEDS: haloperidol 5mg tablet PO SCH ×2 (07:56→20:30)
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
[2021-06-20] MEDS: haloperidol 5mg tablet PO PRN (16:43)
[2021-06-20 19:59] VITALS: BP 137/88
[2021-06-20] MEDS: clozapine 25mg tablet PO SCH (20:29)
[2021-06-20] MEDS: clozapine 100mg tablet PO SCH (20:29)
[2021-06-20] MEDS: mirtazapine 15mg tablet PO SCH (20:29)
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
--- NOTE | 2021-06-21 07:08 | NUR ---
MARIELENA Walton has been accepted at [facility], he is #1 or #2 on the wait-list, they do not have an anticipated admit date yet. IRA Sousa
[2021-06-21 07:53] VITALS: BP 110/71
[2021-06-21] MEDS: magnesium oxide 400mg tablet PO SCH (08:05)
[2021-06-21] MEDS: lithium carbonate 150mg capsule PO SCH ×2 (08:05→20:16)
[2021-06-21] MEDS: haloperidol 5mg tablet PO SCH ×2 (08:05→20:17)
[2021-06-21] MEDS: sertraline 50mg tablet PO SCH (08:05)
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
[2021-06-21] MEDS: clozapine 25mg tablet PO SCH (20:16)
[2021-06-21] MEDS: clozapine 100mg tablet PO SCH (20:16)
[2021-06-21] MEDS: mirtazapine 15mg tablet PO SCH (20:17)
[2021-06-21 20:24] VITALS: BP 127/85
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
[2021-06-22 08:00] VITALS: BP 110/68
[2021-06-22] MEDS: sertraline 50mg tablet PO SCH (08:19)
[2021-06-22] MEDS: haloperidol 5mg tablet PO SCH ×2 (08:19→20:10)
[2021-06-22] MEDS: magnesium oxide 400mg tablet PO SCH (08:19)
[2021-06-22] MEDS: lithium carbonate 150mg capsule PO SCH ×2 (08:19→20:12)
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
--- NOTE | 2021-06-22 18:24 | NUR ---
Group Art Tx Continued: Patient entered the group room as the session was coming to closure. He sat on the side of the room as an observer. Patient appeared to be listening however, did not interact with anyone. He remained pleasant and respectful and was encouraged to come again to group. *Please refer to the [facility] Case Notes for entire overview. Ling Gutierrez MA, TACK MAKER #[id number] [facility], Art Therapist Addendum: 06/22/21 at 1826 by Ling Gutierrez SS Amended: Links added.
[2021-06-22 19:55] VITALS: BP 124/84
[2021-06-22] MEDS: clozapine 25mg tablet PO SCH (20:11)
[2021-06-22] MEDS: mirtazapine 15mg tablet PO SCH (20:11)
[2021-06-22] MEDS: clozapine 100mg tablet PO SCH (20:11)
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
[2021-06-23] MEDS: haloperidol 5mg tablet PO SCH ×2 (08:05→20:23)
[2021-06-23] MEDS: lithium carbonate 150mg capsule PO SCH ×2 (08:05→20:23)
[2021-06-23] MEDS: sertraline 50mg tablet PO SCH (08:05)
[2021-06-23] MEDS: magnesium oxide 400mg tablet PO SCH (08:06)
[2021-06-23 09:06] VITALS: BP 127/79
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
[2021-06-23 19:40] VITALS: BP 131/89
[2021-06-23] MEDS: clozapine 25mg tablet PO SCH (20:23)
[2021-06-23] MEDS: clozapine 100mg tablet PO SCH (20:23)
[2021-06-23] MEDS: mirtazapine 15mg tablet PO SCH (20:23)
[2021-06-24 08:00] VITALS: BP 112/68
[2021-06-24] MEDS: sertraline 50mg tablet PO SCH (08:13)
[2021-06-24] MEDS: magnesium oxide 400mg tablet PO SCH (08:13)
[2021-06-24] MEDS: lithium carbonate 150mg capsule PO SCH ×2 (08:14→20:04)
[2021-06-24] MEDS: haloperidol 5mg tablet PO SCH ×2 (08:14→20:05)
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
[2021-06-24 19:00] VITALS: BP 130/85
[2021-06-24] MEDS: clozapine 25mg tablet PO SCH (20:05)
[2021-06-24] MEDS: mirtazapine 15mg tablet PO SCH (20:05)
[2021-06-24] MEDS: clozapine 100mg tablet PO SCH (20:05)
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
[2021-06-25 07:59] VITALS: BP 109/65
[2021-06-25] MEDS: haloperidol 5mg tablet PO SCH ×2 (08:09→20:19)
[2021-06-25] MEDS: sertraline 50mg tablet PO SCH (08:09)
[2021-06-25] MEDS: magnesium oxide 400mg tablet PO SCH (08:09)
[2021-06-25] MEDS: lithium carbonate 150mg capsule PO SCH ×2 (08:10→20:21)
[2021-06-25] MEDS ORDERED: tuberculin, purif. prot. deriv. 5 units/0.1ml ID ONE (13:20)
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
[2021-06-25] MEDS: haloperidol 5mg tablet PO PRN (14:18)
--- NOTE | 2021-06-25 14:39 | NUR ---
PLACEMENT Anton has been accepted at [facility] in [place]. He is expected to discharge sometime next week. Requested PPD and send out Covid test for admission. IRA Sousa
[2021-06-25 19:34] VITALS: BP 143/94
[2021-06-25] MEDS ORDERED: LITH300T5 PO (20:11)
[2021-06-25] MEDS ORDERED: CLOZ100T13 PO (20:11)
[2021-06-25] MEDS ORDERED: MIRT-87 PO (20:11)
[2021-06-25] MEDS ORDERED: LITH150C8 PO (20:11)
[2021-06-25] MEDS ORDERED: SERT-433 PO (20:11)
[2021-06-25] MEDS ORDERED: CLOZ25TA12 PO (20:11)
[2021-06-25] MEDS ORDERED: MAGN400T56 PO (20:11)
[2021-06-25] MEDS ORDERED: HALO5TAB PO ×3 (20:11)
[2021-06-25] MEDS ORDERED: HYDR-3686 PO (20:11)
[2021-06-25] MEDS: clozapine 100mg tablet PO SCH (20:19)
[2021-06-25] MEDS: clozapine 25mg tablet PO SCH (20:22)
[2021-06-25] MEDS: mirtazapine 15mg tablet PO SCH (20:22)
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
[2021-06-26 07:33] VITALS: BP 109/70
[2021-06-26] MEDS: lithium carbonate 150mg capsule PO SCH ×2 (08:25→20:38)
[2021-06-26] MEDS: sertraline 50mg tablet PO SCH (08:25)
[2021-06-26] MEDS: magnesium oxide 400mg tablet PO SCH (08:26)
[2021-06-26] MEDS: haloperidol 5mg tablet PO SCH ×2 (08:26→20:39)
[2021-06-26 09:44] LABS: BASOPHILS % (AUTO) 0.3 % (0-1); EOSINOPHILS # (AUTO) 0.2 X10'3 (0-0.9); EOSINOPHILS % (AUTO) 2.9 % (0-6); HEMATOCRIT 41.2 % (42.0-52.0); LYMPHOCYTES # (AUTO) 1.4 X10'3 (1.1-4.8); MEAN CORPUSCULAR HEMOGLOBIN 30.5 PG (27.0-31.0); MEAN CORPUSCULAR VOLUME 89.7 FL (78-98); MEAN PLATELET VOLUME 9.1 FL (7.4-10.4); MONOCYTES # (AUTO) 0.6 X10'3 (0-0.9); MONOCYTES % (AUTO) 10.5 % (2-12); NEUTROPHILS # (AUTO) 3.4 X10'3 (1.8-7.7); NEUTROPHILS % (AUTO) 61.3 % (42-75); PLATELET COUNT 202 X10'3 (140-440); RED BLOOD COUNT 4.59 X10'6 (4.70-6.10); RED CELL DISTRIBUTION WIDTH 14.2 % (11.5-14.5); WHITE BLOOD COUNT 5.5 X10'3 (4.5-11.0)
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
[2021-06-26 19:32] VITALS: BP 136/72
[2021-06-26] MEDS: clozapine 100mg tablet PO SCH (20:37)
[2021-06-26] MEDS: clozapine 25mg tablet PO SCH (20:40)
[2021-06-26] MEDS: mirtazapine 15mg tablet PO SCH (20:40)
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
[2021-06-27] MEDS: magnesium oxide 400mg tablet PO SCH (08:05)
[2021-06-27] MEDS: haloperidol 5mg tablet PO SCH ×2 (08:05→20:17)
[2021-06-27] MEDS: lithium carbonate 150mg capsule PO SCH ×2 (08:06→20:16)
[2021-06-27] MEDS: sertraline 50mg tablet PO SCH (08:06)
[2021-06-27 08:31] VITALS: BP 109/80
--- NOTE | 2021-06-27 11:48 | NUR ---
Reassessment: Pt continues eating well, documented with mostly 100% PO intake on regular diet while receiving double eggs WB and double meat BIDLD. [facility] 06/23. No nutrition intervention implemented at this time. Will continue to follow. Recommendations: 1) Continue regular diet; double eggs WB, double meat BIDLD per request 2) Bowel care PRN 3) Weekly scaled weights Addendum: 06/27/21 at [address] Amended: Links added.
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
[2021-06-27 20:16] VITALS: BP 132/84
[2021-06-27] MEDS: clozapine 100mg tablet PO SCH (20:17)
[2021-06-27] MEDS: clozapine 25mg tablet PO SCH (20:17)
[2021-06-27] MEDS: mirtazapine 15mg tablet PO SCH (20:17)
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
[2021-06-28] MEDS: sertraline 50mg tablet PO SCH (07:48)
[2021-06-28] MEDS: lithium carbonate 150mg capsule PO SCH ×2 (07:48→20:07)
[2021-06-28] MEDS: magnesium oxide 400mg tablet PO SCH (07:48)
[2021-06-28] MEDS: haloperidol 5mg tablet PO SCH ×2 (07:49→20:06)
[2021-06-28 08:11] VITALS: BP 106/72
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
[2021-06-28] MEDS: clozapine 100mg tablet PO SCH (20:05)
[2021-06-28] MEDS: clozapine 25mg tablet PO SCH (20:06)
[2021-06-28] MEDS: mirtazapine 15mg tablet PO SCH (20:07)
[2021-06-28 20:41] VITALS: BP 121/84
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
[2021-06-29] MEDS: sertraline 50mg tablet PO SCH (07:55)
[2021-06-29] MEDS: magnesium oxide 400mg tablet PO SCH (07:55)
[2021-06-29] MEDS: lithium carbonate 150mg capsule PO SCH ×2 (07:56→20:27)
[2021-06-29] MEDS: haloperidol 5mg tablet PO SCH ×2 (07:56→20:28)
[2021-06-29 08:00] VITALS: BP 109/62
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
[2021-06-29] MEDS ORDERED: NICOTINE POLACRILEX 2 MG LOZENGE BC PRN (19:25)
[2021-06-29 19:32] VITALS: BP 117/76
[2021-06-29] MEDS: mirtazapine 15mg tablet PO SCH (20:25)
[2021-06-29] MEDS: clozapine 25mg tablet PO SCH (20:25)
[2021-06-29] MEDS: clozapine 100mg tablet PO SCH (20:25)
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
[2021-06-30] MEDS: magnesium oxide 400mg tablet PO SCH (07:07)
[2021-06-30] MEDS: lithium carbonate 150mg capsule PO SCH (07:07)
[2021-06-30] MEDS: sertraline 50mg tablet PO SCH (07:07)
[2021-06-30] MEDS: haloperidol 5mg tablet PO SCH (07:07)
[2021-06-30 08:00] VITALS: BP 111/67
--- NOTE | 2021-06-30 11:55 | NUR ---
DISCHARGE NOTE: Pt discharged/transferred to [facility]. Pt ambulated off the unit accompanied by PCT. Pt's filled Rx's and discharge packet handed to the cab driver, all belongings sent with the patient.
== END 2021-06-30 11:55 | DRG 750 ==
LOC: ER 02:27 → ADULT MH 04:01
PROVIDERS: ADMIT Psychiatry & Neurology Psychiatry; ATTEND Psychiatry & Neurology Psychiatry
DX: F20.9 Schizophrenia, unspecified (principal); F79 Unspecified intellectual disabilities; F12.90 Cannabis use, unspecified, uncomplicated; Z20.822 Contact with and (suspected) exposure to COVID-19; R47.1 Dysarthria and anarthria; R00.0 Tachycardia, unspecified; F41.9 Anxiety disorder, unspecified; F15.10 Other stimulant abuse, uncomplicated; G25.2 Other specified forms of tremor; K59.00 Constipation, unspecified; Z59.00 Homelessness unspecified; Z81.8 Family history of other mental and behavioral disorders; Z87.891 Personal history of nicotine dependence; Z23 Encounter for immunization; Z56.0 Unemployment, unspecified
CPT/HCPCS: 36415; 80053; 80061; 80178; 80305; 80320; 83036; 84443; 85025; 87081; 87635; 93005; 99285; C9803; Q0177; U0003; U0005